=== PATIENT | male | born 1970 | race Caucasian/White ===

== ENCOUNTER 2019-03-26 22:23 | Emergency (ER) | payer OTHER, MEDICAID ==
[~2019-03-26] VITALS: Ht 185.4 cm; Wt 129.7 kg
[2019-03-26 22:28] VITALS: Ht 185.4 cm; Wt 129.7 kg
[2019-03-27 08:11] VITALS: BP 122/77
== END 2019-03-27 08:11 | disposition home or self-care (01) ==
LOC: ED 22:23
DX: S09.90XA Unspecified injury of head, initial encounter (principal); R07.89 Other chest pain; Z98.890 Other specified postprocedural states; W18.39XA Other fall on same level, initial encounter; Y93.89 Activity, other specified; Y92.89 Other specified places as the place of occurrence of the external cause; Y99.8 Other external cause status
CPT/HCPCS: J1885; Q0092

== ENCOUNTER 2019-04-21 20:27 | Emergency (ER) | payer MEDICAID, OTHER ==
[~2019-04-21] VITALS: Ht 172.7 cm; Wt 133.8 kg
[2019-04-21 20:30] VITALS: Ht 172.7 cm; Wt 133.8 kg
[2019-04-21 20:57] LABS: BASOPHIL % 0.8 % (0-2); PLATELET COUNT 141 x10^3mcL (130-400)
[2019-04-21 20:58] LABS: RED CELL DISTRIBUTION WIDTH 15.1 % (11.5-14.5)
[2019-04-21 21:01] LABS: CALCIUM 8.7 mg/dL (8.5-10.1); CARBON DIOXIDE 25.6 mmol/L (21-32); CHLORIDE SERUM 104 mmol/L (98-107); CREATININE SERUM 0.9 mg/dL (0.7-1.3); GFR1 > 60 mL/min; GLUCOSE SERUM 115 mg/dL (74-106); SODIUM SERUM 141 mmol/L (136-145)
[2019-04-21 21:07] LABS: ALBUMIN 3.9 g/dL (3.4-5.0); ALKALINE PHOSPHATASE 76 U/L (46-116); ALT/SGPT 31 U/L (16-63); AMYLASE 61 U/L (25-115); AST/SGOT 29 U/L (15-37); LIPASE 251 IU/L (73-393); MAGNESIUM 1.7 mg/dL (1.8-2.4); TOTAL PROTEIN, SERUM 7.1 g/dL (6.4-8.2)
[2019-04-22 05:50] VITALS: BP 117/71
== END 2019-04-22 05:50 | disposition home or self-care (01) ==
LOC: ED 20:27
PROVIDERS: Emergency Medicine
DX: E87.5 Hyperkalemia (principal); E83.42 Hypomagnesemia; F10.239 Alcohol dependence with withdrawal, unspecified; G43.A1 Cyclical vomiting, in migraine, intractable; Y90.0 Blood alcohol level of less than 20 mg/100 ml; Z98.890 Other specified postprocedural states
CPT/HCPCS: G0480; J1200; J2060; J2405; J2765; J3411; J3475; J3490; J7030